=== PATIENT | female | born 1970 | race Caucasian/White ===

== ENCOUNTER 2024-02-28 19:25 | Emergency (ER) | payer OTHER, SELFPAY ==
[2024-02-28 19:25] VITALS: BMI 38.6
[2024-02-28 19:29] VITALS: BP 206/100
--- NOTE | 2024-02-28 20:12 | ED.GENMED ---
History of Present Illness
General
Chief Complaint: Breathing Problem
Source: patient and spouse
Time Seen by Provider: 02/28/24 19:58
Travel History
Have you had any contact with someone who has COVID-19?: No
Do you have any symptoms of coronavirus? Fever > 100 degrees, chills, cough, shortness of breath, sore throat, loss of taste or smell, muscle aches, or headache?: No
History of Present Illness
History of Present Illness:
54-year-old female with past medical history of hypertension, hyperlipidemia and diabetes presenting to the emergency department for evaluation after she started feeling unwell over the last 24 hours noting cough, shortness of breath, body aches,
poor p.o. intake and generalized fatigue. [facility] where she was told she had pneumonia and given an antibiotic as well as an albuterol inhaler. Patient notes that after she was home she got a call
from what she believes to be the radiologist at the facility and was told she actually did not have pneumonia. Patient used her inhaler once and said she did not like the way that it made her feel as it made her feel quite jittery. She continued
with her shortness of breath so they decided to come to the ER this evening for further evaluation. Patient does note her and son have been sick over the last 2 weeks with similar viral-like symptoms. She denies any chest pain,
palpitations, diaphoresis, exertional dyspnea, orthopnea, peripheral edema.
Past History
Past History
ED Past Medical History: HTN, IDDM and Psychiatric
ED Past Surgical History:
Social History
Tobacco: Non-smoker
Alcohol: Occasional
Drug: None
Personal:
Living: with family
Employment: Other
Family History
Family History: Other
Review of Systems
Review of Systems
All Other Systems: ROS reviewed and negative except as documented in HPI and ROS
Phy Exam
Physical Exam
Physical Exam:
GENERAL: Alert , in no apparent distress
EYE: conjunctiva clear
NECK: Supple
ENT: o/p clr, mmm.
CARDIAC: Tachycardic rate and rhythm, no murmur
LUNGS: Clear breath sounds bilaterally, no acute respiratory distress, no wheezes/rales/rhonchi
NEUROLOGICAL: Alert and oriented
SKIN: Warm and dry, skin intact.
MUSCULOSKELETAL: well perfused. no edema.
PSYCH: Normal and appropriate interaction.
Scores
Heart Failure Risk
Heart Failure Risk Score: Not Applicable
Heart Score for Chest Pain Patients
STEMI patient?: Not applicable
Withdrawal Assessment of Alcohol
Withdrawal Assessment Completed?: Not applicable
Course
Orders/Labs/Results
Orders:
Orders
02/28/24 20:17
Electrocardiogram (*1) Urgent
Reason for Study: Shortness of Breath
EKG- Treatment ONCE
02/28/24 20:38
Basic Metabolic Panel Urgent
Complete Blood Count/With Diff Urgent
D-Dimer Urgent
NT-proBNP Urgent
Troponin I Urgent
02/28/24 21:13
CR Chest - 2 Views Urgent
Comment:
Reason For Exam: cough, SOB
Abnormal Lab Results
02/28/24
20:38
Hgb 11.8 L g/dL
(12.0-16.0)
Hct 34.9 L %
(37.0-47.0)
MPV 10.5 H fL
(7.4-10.4)
Absolute Neuts (auto) 7.3 H 10^3/uL
(1.4-6.5)
Absolute Lymphs (auto) 0.7 L 10^3/uL
(1.2-3.4)
Neutrophils % 85.6 H %
(42.2-75.2)
Lymphocytes % 7.8 L %
(20.5-51.1)
Sodium 134 L mmol/L
(135-145)
BUN 21 H mg/dl
(7-17)
Glucose 188 H mg/dl
(70-99)
02/28/24 20:38
02/28/24 20:38
Vital Signs
Initial and Last Documented VS:
Initial Vital Signs
Temp Pulse Resp BP Pulse Ox
99.0 F 109 20 206/100 97
02/28/24 19:29 02/28/24 19:29 02/28/24 19:29 02/28/24 19:29 02/28/24 19:29
Last Documented Vital Signs
Temp Pulse Resp BP Pulse Ox
99.0 F 104 22 206/100 97
02/28/24 19:29 02/28/24 21:51 02/28/24 21:51 02/28/24 19:29 02/28/24 21:51
MDM/Problems Addressed
Differential Diagnosis Includes:
Viral syndrome, pneumonia, COVID, flu, bronchitis, minimal concern for atypical ACS presentation
MDM/Problems Addressed:
54-year-old female presenting emergency department for evaluation of 24 hours of upper respiratory symptoms. Went to urgent care today and was told that she had questionable pneumonia based off radiology read on chest x-ray there was no signs of
pneumonia. Patient arrived to the emergency department and found to be hypertensive but when I repeated this her blood pressure was significantly improved at 162/81 so the initial was possibly a false read. Will keep a close eye on this. Patient
does have some mild tachycardia however her respiratory rate is within normal limits and her oxygen is persistently between 96 and 98% on RA. given her close sick contacts I do feel her symptoms are most likely viral in nature. Labs including
troponin and D-dimer ordered.
Chronic conditions affecting care: HTN
*Radiology
Radiology exam reviewed: preliminary read by ED provider (no infiltrates)
*Pulse Oximetry
Patient hypoxic: no
*Critical Care Note
Total Time (30-74mins, 75-104mins- exclusive of procedures): Not Applicable
Patient Management
Escalation/DeEscalation of care consider admission/obs:
Patient's chest x-ray without any signs of infiltrates. Her lab work is unremarkable. She is in getting D-dimer and negative troponin as well as a normal BNP. I do suspect viral etiology is most likely especially given the known sick contacts in
patient's home. Her blood pressure from triage was noted to be improved albeit still elevated around 160 systolically over 80 diastolically. Encouraged to follow-up with primary care provider. Aware of return precautions.
ED Attending Note
-
Portions of this chart may have been created with voice recognition software.� Occasional wrong word or��sound alike� substitutions may have occurred due to the inherent limitations of voice recognition software.
Discharge Plan
Departure
Patient Disposition: Home (Routine Discharge)
Date of Disposition: 02/28/24
Time of Disposition: 22:56
Patient with high blood pressure during this ER visit?: Yes
Discharge Problem:
URI (upper respiratory infection)
Instructions: Acute Bronchitis, Adult (DC)
Prescriptions:
No Action
losartan 50 mg Tablet
50 mg PO DAILY
omeprazole 40 mg Capsule,Delayed Release(Dr/Ec)
40 mg PO DAILY
insulin aspart U-100 [Novolog U-100 Insulin aspart] 100 unit/mL Solution
3 unit SC AC
sertraline 50 mg Tablet
50 mg PO DAILY
metformin 750 mg Tablet Extended Release 24 Hr
1,500 mg PO DAILY
rosuvastatin [Crestor] 5 mg Tablet
5 mg PO DAILY
Levemir FlexPen 100 unit/mL (3 mL) Insulin Pen
50 unit SC HS
Referrals:
Ramila Frank MD [Family Provider] -
Interventions
Interventions:
*Risk Screen - Suicide Last Done: 02/28/24 19:29
*General Assessment Last Done: 02/28/24 19:29
*Neglect/Abuse Screening Last Done: 02/28/24 19:29
ED- Fall Risk Assessment Last Done: 02/28/24 22:06
*ED COVID-19 Vaccine History Last Done: 02/28/24 23:45
*Nursing Disposition Last Done: 02/28/24 23:45
ED- Cardiac Assessment Last Done: 02/28/24 22:06
ED- Pulmonary Assessment Last Done: 02/28/24 22:06
Discharge Date and Time
Discharge Date/Time: 02/28/24 23:05
Print Language: GREENLANDIC
[2024-02-28 20:45] LABS: % Basophils 0.4 % (0-2); % Eosinophils 0.4 % (0-6); % Immature Granulocytes 0.4 % (0-0.5); % Lymphocytes 7.8 % (20.5-51.1); % Monocytes 5.4 % (1.7-9.3); % Neutrophils 85.6 % (42.2-75.2); Absolute Lymphocytes 0.7 10^3/uL (1.2-3.4); Absolute Monocytes 0.5 10^3/uL (0.1-0.6); Absolute Neutrophils 7.3 10^3/uL (1.4-6.5); Hematocrit 34.9 % (37.0-47.0); Hemoglobin 11.8 g/dL (12.0-16.0); Mean Corp Hgb Conc. 33.8 g/dL (33.0-37.0); Mean Corpuscular Hgb 27.7 pg (27.0-31.0); Mean Corpuscular Volume 81.9 fL (81.0-99.0); Mean Platelet Volume 10.5 fL (7.4-10.4); Nucleated Red Blood Cells % 0 %; Platelet Count 222 10^3/uL (130-400); Red Blood Cell Count 4.26 10^6/uL (4.20-5.40); Red Cell Dist. Width 13.5 % (11.5-14.5); White Blood Cell Count 8.5 10^3/uL (4.8-10.8)
[2024-02-28 21:06] LABS: Blood Urea Nitrogen 21 mg/dl (7-17); Calcium 9.6 mg/dl (8.4-10.2); Carbon Dioxide 27 mmol/L (22-30); Chloride 98 mmol/L (98-107); Estimated Creatinine Clearance 85 ml/min; Glucose 188 mg/dl (70-99); Potassium 4.5 mmol/L (3.5-5.1); Sodium 134 mmol/L (135-145); eGFR > 60.00
[2024-02-28 21:08] LABS: NT-proBNP 475 pg/ml; Troponin I < 0.012 ng/ml
[2024-02-28 21:10] LABS: D-Dimer < 0.27 ug/mlFEU (0.00-0.50)
== END 2024-02-28 23:05 | disposition home or self-care (01) ==
LOC: EMR 19:25
PROVIDERS: Physician Assistant Medical; EMERGENCY PHYSICIAN Emergency Medicine; FAMILY PHYSICIAN Family Medicine
DX: J06.9 Acute upper respiratory infection, unspecified (principal); I10 Essential (primary) hypertension
CPT/HCPCS: 99285; 71046; 80048; 83880; 84484; 85025; 85379; 93005

== ENCOUNTER → 2024-11-28 13:09 | Outpatient (REF) | payer OTHER, SELFPAY | LOC: DHSLP 13:09 | PROVIDERS: ATTENDING PHYSICIAN Internal Medicine; FAMILY PHYSICIAN Family Medicine | DX: G47.33 Obstructive sleep apnea (adult) (pediatric) (principal) | CPT/HCPCS: 95800 ==